=== PATIENT | female | born 2000 | race African-American/Black ===

== ENCOUNTER 2020-08-09 14:37 | Emergency (ER) | payer OTHER ==
[2020-08-09 14:47] VITALS: BP 140/97; PULSE 83; RESP 18; TEMP 98.3
--- NOTE | 2020-08-09 15:15 | ED ---
General Adult HPI - General Chief complaint: Upper Respiratory Infection Stated complaint: Wants COVID Test Time Seen by Provider: 08/09/20 15:03 Source: patient, RN notes reviewed, old records reviewed Mode of arrival: ambulatory Limitations: no limitations - History of Present Illness Initial comments: 19-year-old female patient presents to ED for evaluation and requesting a covid test. She reports that 3 of her roommates have tested positive and she wants to be tested. She denies any symptoms. Denies cough congestion versus of breath. She reports that she has a little bit of rhinitis or she worsens at this time the year. Denies any chance of being . Denies any shortness of breath or chest pain. Denies any fevers. Denies any other complaints. Systemic: Pt denies fatigue, fever/chills, rash. Pt denies weakness, night sweats, weight loss. Neuro: Pt denies headache, visual disturbances, syncope or pre-syncope. HEENT: Pt denies ocular discharge or irritation, otalgia, rhinorrhea, pharyngitis or notable lymphadenopathy. Cardiopulmonary: Pt denies chest pain, SOB, heart palpitations, dyspnea on exertion. Abdominal/GI: Pt denies abdominal pain, n/v/d. : Pt denies dysuria, burning w/ urination, frequency/urgency. Denies new onset urinary or bowel incontinence. MSK: Pt denies myalgia, loss of strength or function in extremities. Neuro: Pt denies new onset weakness, paresthesias. - Related Data Previous Rx's Medication Instructions Recorded Amoxicillin 500 mg PO Q8H #30 capsule 08/02/14 Allergies Allergy/AdvReac Type Severity Reaction Status Date / Time PAIN MED Allergy Unknown Uncoded 08/09/20 14:48 Review of Systems ROS Statement: Those systems with pertinent positive or pertinent negative responses have been documented in the HPI. ROS Other: All systems not noted in ROS Statement are negative. Past Medical History Past Medical History: No Reported History History of Any Multi-Drug Resistant Organisms: None Reported Past Surgical History: Adenoidectomy, Tonsillectomy Past Psychological History: ADD/ADHD Smoking Status: Current every day smoker Past Alcohol Use History: Occasional Past Drug Use History: Marijuana General Exam - General Exam Comments Initial Comments: Constitutional: NAD, AOX3, Pt has pleasant affect. HEENT: NC/AT, trachea midline, neck supple, no lymphadenopathy. External ears appear normal, without discharge. Mucous membranes moist. Eyes PERRLA, EOM intact. There is no scleral icterus. No pallor noted. Cardiopulmonary: RRR, no murmurs, rubs or gallops, no JVD noted. Lungs CTAB in anterior and posterior farrell. No peripheral edema. Abdominal exam: Abdomen soft and non-distended. Abdomen non-tender to palpation in all 4 quadrants. Neuro: CN II-XII grossly intact. No nuchal rigidity. MSK: Full active ROM in upper and lower extremities, 5/5 stregnth. Limitations: no limitations Course Vital Signs 08/09/20 14:45 Temperature 98.3 F Pulse Rate 83 Respiratory 18 Rate Blood Pressure 140/97 O2 Sat by Pulse 98 Oximetry Medical Decision Making - Medical Decision Making 19-year-old female to ED requesting Covid test. Patient will be tested. By the self quarantined until results. Follow up with primary tomorrow. Return for any worsening symptoms. Case discussed with Dr. Mary. Disposition Clinical Impression: Exposure to COVID-19 virus Disposition: HOME SELF-CARE Condition: Stable Instructions (If sedation given, give patient instructions): Upper Respiratory Infection (ED) Additional Instructions: Follow up with PCP tomorrow. Self quarantine until results. Return to ED with any worsening symptoms. Is patient prescribed a controlled substance at d/c from ED?: No Referrals: Nolvia Patricia MD [Primary Care Provider] - 1-2 days
== END 2020-08-09 15:42 | disposition home or self-care (01) ==
LOC: EC 14:37
DX: Z03.818 Encounter for observation for suspected exposure to other biological agents ruled out (principal); Z20.828 Contact with and (suspected) exposure to other viral communicable diseases; F17.200 Nicotine dependence, unspecified, uncomplicated; Z88.8 Allergy status to other drugs, medicaments and biological substances
CPT/HCPCS: 87635; 99284

== ENCOUNTER 2021-04-14 07:02 | Emergency (ER) | payer OTHER ==
[2021-04-14 07:10] VITALS: RESP 18; TEMP 98.3
[2021-04-14] MEDS ORDERED: LIDOCAINE 1% INJ 10MG/ML (20 ML MDV) SQ ONE (07:23)
--- NOTE | 2021-04-14 07:26 | ED ---
General Adult HPI - General Chief complaint: ENT Stated complaint: Poss bug in LT ear Time Seen by Provider: 04/14/21 07:12 Source: patient, family, RN notes reviewed Mode of arrival: ambulatory Limitations: no limitations - History of Present Illness Initial comments: Patient is a pleasant 20-year-old female presenting to the emergency department with concern for an insect in her left ear. Patient states she heard some buzzing and felt some discomfort of her left ear a proximal he just 20 minutes ago. Patient did put some peroxide in the ear without improvement of symptoms however symptoms seemed to be somewhat improving now. No history of similar symptoms previously. No hearing loss. - Related Data Previous Rx's Medication Instructions Recorded Amoxicillin 500 mg PO Q8H #30 capsule 08/02/14 Allergies Allergy/AdvReac Type Severity Reaction Status Date / Time PAIN MED Allergy Unknown Uncoded 04/14/21 07:10 Review of Systems ROS Statement: Those systems with pertinent positive or pertinent negative responses have been documented in the HPI. ROS Other: All systems not noted in ROS Statement are negative. Constitutional: Denies: fever Eyes: Denies: eye pain ENT: Reports: as per HPI Respiratory: Denies: cough Cardiovascular: Denies: chest pain Endocrine: Denies: fatigue Gastrointestinal: Denies: abdominal pain Genitourinary: Denies: urgency Musculoskeletal: Denies: back pain Skin: Denies: rash Neurological: Denies: weakness Past Medical History Past Medical History: No Reported History History of Any Multi-Drug Resistant Organisms: None Reported Past Surgical History: Adenoidectomy, Tonsillectomy Past Psychological History: ADD/ADHD Smoking Status: Current every day smoker, Vaper Past Alcohol Use History: Occasional Past Drug Use History: Marijuana General Exam Limitations: no limitations General appearance: alert, in no apparent distress Head exam: Present: normocephalic Eye exam: Present: normal appearance ENT exam: Present: normal oropharynx, other (Left external canal with questionable dark brown foreign body in the anterior portion. Deep. With some appearance of blood.) Neck exam: Present: normal inspection Respiratory exam: Present: normal lung sounds bilaterally Cardiovascular Exam: Present: regular rate, normal rhythm Neurological exam: Present: alert Psychiatric exam: Present: normal affect, normal mood Skin exam: Present: normal color Course Vital Signs 04/14/21 07:08 Temperature 98.3 F Pulse Rate 101 H Respiratory 18 Rate Blood Pressure 136/99 O2 Sat by Pulse 97 Oximetry - Reevaluation(s) Reevaluation #1: 04/14/21 09:10 Unable to remove some foreign body despite letting area soak, attempted removal with ear curette as well as alligator forceps as well as suction as well as flushing Medical Decision Making - Medical Decision Making Case was discussed with Dr. Cohn who would like patient to head over to the office. Office was notified. Patient notified. Disposition Clinical Impression: Foreign body in left ear Disposition: HOME SELF-CARE Condition: Stable Instructions (If sedation given, give patient instructions): Ear Foreign Body (ED) Additional Instructions: Please head directly to Dr. Goel's office to be seen there for further care. Return for ear problems, worsening symptoms or any other concerns. Is patient prescribed a controlled substance at d/c from ED?: No Referrals: Nolvia Patricia MD [Primary Care Provider] - 1-2 days Richard Bates MD [STAFF PHYSICIAN] - 1-2 days Time of Disposition: 10:03
[2021-04-14 10:08] VITALS: BP 134/84; PULSE 90
== END 2021-04-14 10:27 | disposition home or self-care (01) ==
LOC: EC 07:02
DX: T16.2XXA Foreign body in left ear, initial encounter (principal); F17.200 Nicotine dependence, unspecified, uncomplicated; F12.90 Cannabis use, unspecified, uncomplicated; X58.XXXA Exposure to other specified factors, initial encounter
CPT/HCPCS: 99282; J2001